=== PATIENT | female | born 2000 | race Caucasian/White ===

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

== ENCOUNTER → 2022-07-05 17:07 | Outpatient (BNVA) | payer BC, MEDICAID, SELFPAY | PROVIDERS: Visit Provider Emergency Medicine | DX: R60.9 Edema, unspecified (principal) | CPT/HCPCS: 73562 ==

== ENCOUNTER 2022-10-12 11:07 | Emergency (ER) | payer BC, MEDICAID, SELFPAY ==
[2022-10-12 11:24] VITALS: BP 128/83; PULSE 89; RESP 16; TEMP 36.8; O2SAT 100; BMI 17.3
[2022-10-12 11:28] VITALS: BP 132/79; PULSE 68; RESP 16; O2SAT 97
--- NOTE | 2022-10-12 12:19 | CTR_ITS ---
PROCEDURE INFORMATION: Exam: CT Head Without Contrast Exam date and time: 10/12/2022 12:34 PM Age: 22 years old Clinical indication: Other: Weakness, vision changes, headache TECHNIQUE: Imaging protocol: Computed tomography of the head without contrast. Radiation optimization: All CT scans at this facility use at least one of these dose optimization techniques: automated exposure control; mA and/or kV adjustment per patient size (includes targeted exams where dose is matched to clinical indication); or iterative reconstruction. REPORTING DATA: Count of CT and Cardiac NM exams in prior 12 months: This patient has received 0 known CTs and 0 known cardiac nuclear medicine studies in the 12 months prior to the current study. COMPARISON: MR head wo con* [id number] 12/27/2020 8:05 AM RADIATION DOSE METRICS: Total DLP (mGy-cm): 954.49 FINDINGS: Brain: Normal. No hemorrhage. Unremarkable white matter. No mass effect. Cerebral ventricles: No ventriculomegaly. Paranasal sinuses: Mucosal thickening noted in the frontal sinuses. Mastoid air cells: Visualized mastoid air cells are well aerated. Bones/joints: Unremarkable. No acute fracture. Soft tissues: Unremarkable. CT/CT head wo con* [id number] IMPRESSION: No acute intracranial abnormality.
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
[2022-10-12 12:58] VITALS: BP 126/83; PULSE 79; RESP 16; O2SAT 95
[2022-10-12 13:00] VITALS: BP 126/83; PULSE 79; RESP 16; O2SAT 95
[2022-10-12 13:01] LABS: Basophils % 0.4 %; Eosinophils # 0.1 10^3/uL (0.0-0.8); Eosinophils % 1.1 %; Hematocrit 36.1 % (37.0-47.0); Hemoglobin 11.8 g/dL (11.5-15.3); Lymphocytes # 1.9 10^3/uL (1.5-6.5); Lymphocytes % 27.1 %; Mean Corpuscular HGB Conc 32.7 g/dL (30.0-36.0); Mean Corpuscular Hemoglobin 29.6 pg (28.0-34.0); Mean Corpuscular Volume 90.5 fl (81-99); Mean Platelet Volume 9.5 fL (7.4-10.4); Monocytes # 0.4 10^3/uL (0.2-0.9); Neutrophils # 4.66 10^3/uL (1.8-8.0); Neutrophils % 65.1 %; Nucleated Red Blood Cells % 0 %; Platelet Count 326 10^3/cmm (130-400); Red Blood Count 3.99 10^6/uL (4.1-5.3); Red Cell Distribution Width 11.7 % (12.1-15.1); White Blood Count 7.2 10^3/uL (4.5-13.0)
--- NOTE | 2022-10-12 13:05 | PC.NURSE ---
PHYSICIAN NOTIFIED OF NIH SCORE - 2 AND PT RIGHT WEED CUTTER < LEFT WEED CUTTER. NO NEW ORDERS AT THIS TIME.
[2022-10-12 13:18] LABS: Add Urine Microscopic? NO; Charge for UA Resulting for Rev
[2022-10-12 13:21] LABS: Bilirubin Urine Neg (Negative); Blood Urine Neg (Negative); Glucose Urine UA Norm (Normal); Ketones Urine Negative (Negative); Leukocyte Esterase Urine Negative (Negative); Nitrate Urine Negative (Negative); Protein Urine Neg (Negative); Sulfosalicylic Acid Urine Negative (Negative); Urine Appearance Clear (CLEAR); Urine Color Yellow (Yellow); Urobilinogen Urine Norm (Negative); pH Urine 8 (5-7)
[2022-10-12 13:24] LABS: Alanine Aminotransferase 6 U/L (0-33); Albumin Level 4.4 g/dL (3.5-5.2); Alkaline Phosphatase 64 U/L (35-105); Anion Gap 15.5 (5-19); Aspartate Amino Transferase 14 U/L (0-32); Blood Urea Nitrogen 8 mg/dL (6-20); Calcium 8.8 mg/dL (8.5-10.5); Carbon Dioxide 21 mmol/L (22-29); Chloride 106 mmol/L (98-107); Globulin 2.8 g/dL (1.3-4.6); Glomerular Filtration Rate 127.5 mL/min (90-130); Glucose 78 mg/dL (65-115); Osmolality Calculated 285 mOsm/kg (285-295); Potassium 3.5 mmol/L (3.5-5.1); Sodium 139 mmol/L (136-145); Total Bilirubin 0.6 mg/dL (0.15-1.2); Total Protein 7.2 g/dL (6.6-8.7)
[2022-10-12 13:29] LABS: Amphetamines Screen Urine Negative (Negative); Barbiturates Screen Urine Negative (Negative); Benzodiazepines Screen Urine Negative (Negative); Cocaine Screen Urine Negative (Negative); Opiate Screen Urine Negative (Negative); PCP Screen Urine Negative (Negative); THC Screen Urine Negative (Negative)
[2022-10-12 14:00] VITALS: BP 99/83; PULSE 88; RESP 16; O2SAT 100
[2022-10-12 14:47] VITALS: BP 99/83; PULSE 88; RESP 16; O2SAT 100
== END 2022-10-12 14:05 | disposition home or self-care (01) ==
PROVIDERS: Emergency Provider Emergency Medicine; PCP Nurse Practitioner Family
DX: R51.9 Headache, unspecified (principal); R42 Dizziness and giddiness; R29.818 Other symptoms and signs involving the nervous system
CPT/HCPCS: 70450; 80053; 80306; 81003; 85025; 86140; 99284

== ENCOUNTER → 2023-05-06 12:03 | Outpatient (BNVA) | payer OTHER, MEDICAID, SELFPAY | PROVIDERS: PCP Nurse Practitioner Family; Visit Provider Registered Nurse Neonatal Intensive Care | DX: R05.9 Cough, unspecified (principal) | CPT/HCPCS: 87400; 87426 ==

== ENCOUNTER → 2023-05-07 09:35 | Outpatient (BNVA) | payer OTHER, SELFPAY | PROVIDERS: PCP Nurse Practitioner Family; Visit Provider Psychiatry & Neurology Neurology | DX: R56.9 Unspecified convulsions (principal); R51.9 Headache, unspecified | CPT/HCPCS: 36415; 82306; 82607; 82746; 83735; 83921 ==

== ENCOUNTER 2023-05-08 20:45 | Emergency (ER) | payer OTHER, MEDICAID, SELFPAY ==
[2023-05-08 20:51] VITALS: BP 127/105; PULSE 112; RESP 16; TEMP 37.9; O2SAT 97
--- NOTE | 2023-05-08 20:58 | XRR_ITS ---
PROCEDURE INFORMATION: Exam: XR Chest Exam date and time: 05/08/2023 9:15 PM Age: 23 years old Clinical indication: Cough; Patient HX: N/v/d TECHNIQUE: Imaging protocol: Radiologic exam of the chest. Views: 1 view. COMPARISON: No relevant prior studies available. FINDINGS: Lungs: Unremarkable. No consolidation. Pleural spaces: Unremarkable. No pleural effusion. No pneumothorax. Heart/Mediastinum: Unremarkable. No cardiomegaly. Bones/joints: Unremarkable. XR/XR chest 1V portable [id number] IMPRESSION: No acute findings.
--- NOTE | 2023-05-08 20:59 | W.ED.NAVMDI ---
HPI - Nausea/Vomiting/Diarrhea General: Chief complaint: Nausea/Vomiting/Diarrhea Stated complaint: n/v Time Seen by Provider: 05/08/23 20:52 History of Present Illness: 23-year-old female comes in today for complaints of nausea and vomiting for the last 4 days. Patient is also had cough and nasal congestion with some diarrhea. 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 Patient did have positive contact with RSV. Patient appears unwell but not toxic. Patient has a congested nose. Patient reports no chronic medical problems. Associated nausea: Yes Associated symtoms: Reports nausea Review of Systems General: Reports: 10 or more systems reviewed and unremarkable except in HPI and below GI: Reports: nausea and vomiting PFSH ED PFSH: Medical History Psychiatric care Hypothyroidism No pertinent past medical history neghx: htn,dm,thyroid,dvt/pe PCP: [facility] Migraine without aura Surgical History No pertinent past surgical history Family History Father Hypertension Heart disease Grandfather Heart disease Paternal grandfather Family/Other No problems noted. Grandmother Diabetes Maternal grandmother Paternal grandmother Denies family history of Colon cancer Ovarian cancer Hyperlipidemia Breast cancer Family history of thyroid problem Uterine cancer Stroke Social History (Updated 05/07/23 @ 08:33 by Chrissy Luis) Smoking and tobacco/nicotine status: current every day tobacco/nicotine user e-cigarettes E-Cigarette Details: vaporizer device and with nicotine Alcohol intake: current Alcohol intake frequency: few times a month Substance/Drug Use: never Female Reproductive History: Date of last menstrual period: 01/14/20 Physical Exam Const: COMMON NORMALS: alert HENMT: COMMON NORMALS: normocephalic HEAD & SCALP: normocephalic NOSE: Nasal discharge present MOUTH: Normal oral and palatal mucosa present Neck/C-Spine: COMMON NORMALS: full ROM Resp: COMMON NORMALS: normal respiratory effort and clear to auscultation bilaterally AUSCULTATION: clear to auscultation bilaterally Cardio: COMMON NORMALS: regular rate and regular rhythm RATE: regular rate RHYTHM: regular rhythm GI: COMMON NORMALS: Soft to palpation and non-tender PALPATION: Yes Soft to palpation : COMMON NORMALS: Yes no CVA tenderness BLADDER/KIDNEY EXAM: Yes no CVA tenderness Back/Pelvis: COMMON NORMALS: no CVA tenderness Extremity: COMMON NORMALS: normal to inspection Neuro: SENSORIUM/ORIENTATION: Yes alert Skin: COMMON NORMALS: turgor normal GENERAL SKIN EXAM: turgor normal Course Vital Signs: Vital signs: Vital Signs Temperature 100.3 F H 05/08/23 20:51 Pulse Rate 102 H 05/08/23 22:19 Respiratory Rate 16 05/08/23 22:19 Blood Pressure 116/74 05/08/23 22:19 Pulse Oximetry 98 05/08/23 22:19 Oxygen Delivery Me thod Room Air 05/08/23 21:53 MDM - Nausea/Vomiting/Diarrhea Medical Decision Making Patient comes in today for complaints of nausea and vomiting x 4 days. Patient has nasal drainage and congestion. On exam lungs are clear to auscultation. Abdomen soft nontender. Vital signs are normal except for some elevation temperature of 100.3 and a pulse rate of 112. CBC noted some mild leukocytosis at 14,000, CMP was unremarkable, urinalysis noted some mild leukocyte esterases and white blood cells. It was also contaminated with skin cells. Believe patient probably has some dehydration secondary to a viral syndrome. Patient was given 1 L of IV fluids and some Zofran and Toradol and was able to tolerate oral fluids and discharged home with Zofran. Patient and mother both reported understanding of care plan and need for follow-up or return to the ER. Lab Data 05/08/23 20:56 05/08/23 20:56 Radiology Impressions Chest X-Ray 05/08/23 20:58 IMPRESSION: No acute findings. Laboratory Results WBC 14.91 10^3/uL (3.29-11.43) H 05/08/23 20:56 RBC 3.89 10^6/uL (3.85-5.65) 05/08/23 20:56 Hgb 11.70 g/dL (11.27-16.99) 05/08/23 20:56 Hct 35.2 % (36-47) L 05/08/23 20:56 MCV 90.5 fl (85-98) 05/08/23 20:56 MCH 30.1 pg (27-33) 05/08/23 20:56 MCHC 33.2 g/dL (30-55) 05/08/23 20:56 RDW 11.5 % (12.1-15.1) L 05/08/23 20:56 Plt Count 371 10^3/cmm (157-399) 05/08/23 20:56 MPV 9.5 fL (7.4-10.4) 05/08/23 20:56 Neut % (Auto) 82.9 % 05/08/23 20:56 Lymph % (Auto) 9.0 % 05/08/23 20:56 [place] % (Auto) 7.3 % 05/08/23 20:56 Eos % (Auto) 0.2 % 05/08/23 20:56 Baso % (Auto) 0.2 % 05/08/23 20:56 Neut # (Auto) 12.36 10^3/uL (1.8-7.7) H 05/08/23 20:56 Lymph # (Auto) 1.3 10^3/uL (0.8-4.8) 05/08/23 20:56 [place] # (Auto) 1.1 10^3/uL (0.2-0.9) H 05/08/23 20:56 Eos # (Auto) 0.0 10^3/uL (0.0-0.8) 05/08/23 20:56 Baso # (Auto) 0.0 10^3/uL (0.0-0.1) 05/08/23 20:56 Nucleated RBC % (auto) 0 % 05/08/23 20:56 Nucleated RBCs # 0.0 /100WBC 05/08/23 20:56 Sodium 137 mmol/L (136-145) 05/08/23 20:56 Potassium 4.1 mmol/L (3.5-5.1) 05/08/23 20:56 Chloride 99 mmol/L (98-107) 05/08/23 20:56 Carbon Dioxide 23 mmol/L (22-29) 05/08/23 20:56 Anion Gap 19.1 (5-19) H 05/08/23 20:56 BUN 8 mg/dL (6-20) 05/08/23 20:56 Creatinine 0.6 mg/dL (0.5-0.9) 05/08/23 20:56 GFR Calculation 126.2 mL/min (90-130) 05/08/23 20:56 Glucose 90 mg/dL (65-115) 05/08/23 20:56 Calculated Osmolality 282 mOsm/kg (285-295) L 05/08/23 20:56 Calcium 8.7 mg/dL (8.5-10.5) 05/08/23 20:56 Total Bilirubin 0.7 mg/dL (0.15-1.2) 05/08/23 20:56 AST 17 U/L (0-32) 05/08/23 20:56 ALT 6 U/L (0-33) 05/08/23 20:56 Alkaline Phosphatase 88 U/L (35-105) 05/08/23 20:56 Total Protein 8.2 g/dL (6.6-8.7) 05/08/23 20:56 Albumin 3.9 g/dL (3.5-5.2) 05/08/23 20:56 Globulin 4.3 g/dL (1.3-4.6) 05/08/23 20:56 HCG, Qual Negative (Negative) 05/08/23 20:56 Urine Color Yellow (Yellow) 05/08/23 20:58 Urine Appearance Sl hazy (CLEAR) A 05/08/23 20:58 Urine pH 5 (5-7) 05/08/23 20:58 Ur Specific [place] 1.020 (1.005-1.030) 05/08/23 20:58 Urine Protein Trace (Negative) 05/08/23 20:58 Urine Glucose (UA) Norm (Normal) 05/08/23 20:58 Urine Ketones 2+ (Negative) H 05/08/23 20:58 Urine Blood 3+ (Negative) H 05/08/23 20:58 Urine Nitrate Negative (Negative) 05/08/23 20:58 Urine Bilirubin Neg (Negative) 05/08/23 20:58 Urine Urobilinogen 4+ mg/dL (Negative) H 05/08/23 20:58 Ur Leukocyte Esterase 1+ (Negative) H 05/08/23 20:58 Urine RBC 5-10 /hpf (0-2) H 05/08/23 20:58 Urine WBC 10-15 /hpf (0-5) H 05/08/23 20:58 Ur Squamous Epith Cells 0-4 /hpf (0-5) H 05/08/23 20:58 Amorphous Sediment Trace /hpf 05/08/23 20:58 Urine Bacteria 1+ /hpf (NONE) H 05/08/23 20:58 Urine Mucus Trace /hpf 05/08/23 20:58 Influenza Type A Ag negative (Negative) 05/08/23 20:59 Influenza Type B Ag negative (Negative) 05/08/23 20:59 SARS-CoV-2 Ag (Rapid) negative (Negative) 05/08/23 20:59 All radiology interpretation(s) finalized by discharge Discharge Plan Discharge Patient Disposition: Home Clinical Impression: Viral syndrome, Dehydration Condition: Stable Prescriptions: New ondansetron 4 mg tablet,disintegrating 4 mg PO Q8H PRN (Reason: nausea and vomiting) Qty: 10 0RF No Action cholecalciferol (vitamin D3) 1,250 mcg (50,000 unit) capsule 50,000 unit PO DAILY Qty: 30 2RF Rx Instructions: Take 1 tablet twice a week for 3 weeks then 1 tablet every week thereafter. albuterol sulfate 90 mcg/actuation HFA aerosol inhaler 2 inh inhalation QID Discharge Orders: Discharge ED (Routine); Ordered 05/08/23 Ordered By: Westley Reinoso Referrals: Jackie Hardin FNP [Primary Care Provider] - Discharge Diet: Usual diet Discharge Activity: Increase activity as tolerated Patient Instructions: Acute Nausea and Vomiting (ED) Activity Restrictions/Additional Instructions: Home and rest. Drink frequent sips of fluid. Increase diet slowly over the next 24 to 48 hours. Start with clear liquids and then increase to full liquids and then to bland diet. Follow-up with primary care as needed. Return to ED for increasing nausea and vomiting, blood in vomit or stool, or new concerns. Stand Alone Forms: Work/School Release Coding Level of Care Code ED Scientific Laboratory Supervisor for Ochoa Ward
[2023-05-08] MEDS: ondansetron 2 mg/ML SDV 2 mL 4 MG IVP (21:02)
[2023-05-08] MEDS: sodium chloride 0.9% 1,000 ML 999 ML IV (21:03)
[2023-05-08 21:05] LABS: Basophils % 0.2 %; Eosinophils % 0.2 %; Hematocrit 35.2 % (36-47); Lymphocytes # 1.3 10^3/uL (0.8-4.8); Mean Corpuscular HGB Conc 33.2 g/dL (30-55); Mean Corpuscular Hemoglobin 30.1 pg (27-33); Mean Corpuscular Volume 90.5 fl (85-98); Mean Platelet Volume 9.5 fL (7.4-10.4); Monocytes # 1.1 10^3/uL (0.2-0.9); Monocytes % 7.3 %; Neutrophils # 12.36 10^3/uL (1.8-7.7); Neutrophils % 82.9 %; Nucleated Red Blood Cells % 0 %; Platelet Count 371 10^3/cmm (157-399); Red Blood Count 3.89 10^6/uL (3.85-5.65); Red Cell Distribution Width 11.5 % (12.1-15.1); White Blood Count 14.91 10^3/uL (3.29-11.43)
[2023-05-08 21:14] LABS: HCG, Serum Qual Negative (Negative)
[2023-05-08 21:23] LABS: Add Urine Microscopic? YES; Bilirubin Urine Neg (Negative); Blood Urine 3+ (Negative); Glucose Urine UA Norm (Normal); Ketones Urine 2+ (Negative); Leukocyte Esterase Urine 1+ (Negative); Nitrate Urine Negative (Negative); Protein Urine Trace (Negative); Urine Appearance SL Hazy (CLEAR); Urine Color Yellow (Yellow); Urobilinogen Urine 4+ mg/dL (Negative); pH Urine 5 (5-7)
[2023-05-08 21:24] LABS: Albumin Level 3.9 g/dL (3.5-5.2); Alkaline Phosphatase 88 U/L (35-105); Blood Urea Nitrogen 8 mg/dL (6-20); Calcium 8.7 mg/dL (8.5-10.5); Carbon Dioxide 23 mmol/L (22-29); Chloride 99 mmol/L (98-107); Globulin 4.3 g/dL (1.3-4.6); Glomerular Filtration Rate 126.2 mL/min (90-130); Glucose 90 mg/dL (65-115); Osmolality Calculated 282 mOsm/kg (285-295); Sodium 137 mmol/L (136-145); Total Bilirubin 0.7 mg/dL (0.15-1.2); Total Protein 8.2 g/dL (6.6-8.7)
[2023-05-08 21:24] LABS: Amorphous Sediment Urine TRACE /hpf; Bacteria Urine 1+ /hpf; Mucus Urine TRACE /hpf; Squamous Epithelial Cell Urine 0-4 /hpf (0-5)
[2023-05-08 21:25] LABS: Add Urine Culture? Yes
[2023-05-08 21:27] LABS: Anion Gap 19.1 (5-19); Potassium 4.1 mmol/L (3.5-5.1)
[2023-05-08 21:28] LABS: Alanine Aminotransferase 6 U/L (0-33); Aspartate Amino Transferase 17 U/L (0-32)
[2023-05-08 21:29] LABS: Influenza A by IFA negative (Negative); Influenza B by IFA negative (Negative); SARS Covid-2 Antigen negative (Negative)
[2023-05-08] MEDS: ketorolac 30 mg/mL INJ 15 MG IVP (21:30)
[2023-05-08 21:53] VITALS: BP 121/75; RESP 16; O2SAT 99
[2023-05-08 22:19] VITALS: BP 116/74; PULSE 102; RESP 16; O2SAT 98
== END 2023-05-08 22:27 | disposition home or self-care (01) ==
PROVIDERS: Emergency Provider Nurse Practitioner Family; PCP Nurse Practitioner Family
DX: B34.9 Viral infection, unspecified (principal); E86.0 Dehydration; Z11.52 Encounter for screening for COVID-19; F17.290 Nicotine dependence, other tobacco product, uncomplicated
CPT/HCPCS: 71045; 80053; 81001; 84703; 85025; 87086; 87426; 87804; 96361; 96374; 96375; 99284; J1885; J2405; J7030

== ENCOUNTER 2023-05-31 09:19 | Outpatient (CLI) | payer OTHER, SELFPAY ==
--- NOTE | 2023-05-31 10:15 | MR_ITS ---
WS: [id number] MRI HEAD WITH CONTRAST TECHNIQUE: Sagittal T1, T2 axial, T2 axial FLAIR, axial susceptibility weighted imaging, axial diffus ion weighted images, and coronal T2 images were obtained. Pre and post-T1 axial and post T1 coronal i mages. ADC and FSPGR images. CLINICAL INFORMATION: R56.9 - Unspecified convulsions COMPARISON: MRI 2020 FINDINGS: No evidence of restricted diffusion to suggest acute ischemia. Ventricular system and basal cisterns are patent. Normal posterior fossa. Normal vascular flow voids at the skull base. No extra-axial flui d collections. No evidence of mass or mass effect. Moderate polypoid mucosal thickening in the parana jayme sinuses. Mucosal thickening in the mastoid tips. Prominent adenoid tissue in the posterior nasoph arynx normal for patient this age. No hemosiderin on susceptibly weighted images. Normal optic chiasm and pituitary infundibulum. Tempor al lobes and hippocampal formations are normal in appearance. No signal abnormalities in the mesial t emporal lobes. No abnormal gadolinium enhancement. Normal dural venous sinuses. No other suspicious findings. IMPRESSION: 1. No evidence of restricted diffusion to suggest acute ischemia. 2. No suspicious intracranial signal abnormalities. 3. Temporal lobes and hippocampal formations are normal in appearance. No signal abnormalities in th e mesial temporal lobes. 4. No abnormal gadolinium enhancement. 5. Moderate polyploid mucosal thickening in the paranasal sinuses. Fluid in the RIGHT maxillary sinu s compatible with sinusitis.
[2023-05-31] MEDS: gadobenate dimeglumine 20 mL vial IV (10:49)
== END 2023-05-31 09:20 | disposition home or self-care (01) ==
PROVIDERS: PCP Nurse Practitioner Family; Visit Provider Psychiatry & Neurology Neurology
DX: R56.9 Unspecified convulsions (principal); R51.9 Headache, unspecified
CPT/HCPCS: 70553; A9577

== ENCOUNTER 2024-01-19 01:43 | Emergency (ER) | payer MEDICAID, SELFPAY ==
[2024-01-19 01:44] VITALS: BP 116/67; RESP 125; TEMP 36.3; O2SAT 100; BMI 20.9
--- NOTE | 2024-01-19 02:20 | PC.NURSE ---
Seizure pads placed on bed. Pt changed into gown.
[2024-01-19] MEDS: sodium chloride 0.9% 1,000 ML 999 ML IV (02:21)
[2024-01-19 02:28] LABS: Basophils # 0.1 10^3/uL (0.0-0.1); Basophils % 0.6 %; Eosinophils # 0.1 10^3/uL (0.0-0.8); Eosinophils % 0.8 %; Lymphocytes # 4.2 10^3/uL (0.8-4.8); Lymphocytes % 42.3 %; Mean Corpuscular HGB Conc 33.1 g/dL (30-55); Mean Corpuscular Hemoglobin 30.3 pg (27-33); Mean Corpuscular Volume 91.5 fl (85-98); Mean Platelet Volume 10.5 fL (7.4-10.4); Monocytes # 0.8 10^3/uL (0.2-0.9); Monocytes % 8.4 %; Neutrophils # 4.76 10^3/uL (1.8-7.7); Neutrophils % 47.7 %; Nucleated Red Blood Cells % 0 %; Platelet Count 368 10^3/cmm (157-399); Red Blood Count 4.59 10^6/uL (3.85-5.65); Red Cell Distribution Width 11.5 % (12.1-15.1); White Blood Count 9.99 10^3/uL (3.29-11.43)
--- NOTE | 2024-01-19 02:43 | PC.NURSE ---
Dad, , and friend at bedside. Pt crying out. Pulled out IV. Dressing applied.
[2024-01-19 02:47] LABS: Alanine Aminotransferase 10 U/L (0-33); Albumin Level 4.7 g/dL (3.5-5.2); Alcohol Level 256 mg/dL (0-10); Alkaline Phosphatase 89 U/L (35-105); Aspartate Amino Transferase 19 U/L (0-32); Blood Urea Nitrogen 6 mg/dL (6-20); Calcium 8.9 mg/dL (8.5-10.5); Carbon Dioxide 20 mmol/L (22-29); Chloride 109 mmol/L (98-107); Glomerular Filtration Rate 105.6 mL/min (90-130); Glucose 75 mg/dL (65-115); Osmolality Calculated 292 mOsm/kg (285-295); Sodium 143 mmol/L (136-145); Total Bilirubin 0.3 mg/dL (0.15-1.2); Total Protein 7.7 g/dL (6.6-8.7)
[2024-01-19 02:50] LABS: Acetaminophen < 5.0 ug/mL (10-30); Salicylate < 0.3 mg/dL (3-10)
[2024-01-19 02:55] VITALS: BP 113/76; PULSE 107; RESP 20; O2SAT 97
--- NOTE | 2024-01-19 03:08 | PC.NURSE ---
Orders received for IM meds. Clarified order dosages with MD secondary to pt size and ETOH. MD ordered to hold Ativan at this time. Will give further ordered meds and monitor pt.
[2024-01-19] MEDS: haloperidol inj 5 mg/mL INJ 1 mL IM (03:21)
[2024-01-19] MEDS: diphenhydrAMINE 50 mg/mL SDV 1mL IM (03:23)
[2024-01-19 04:01] VITALS: BP 91/53; PULSE 93; RESP 15; O2SAT 94
--- NOTE | 2024-01-19 04:01 | PC.NURSE ---
PT resting quietly at this time. vss
--- NOTE | 2024-01-19 04:39 | PC.NURSE ---
Pt resting quietly. Airway patent. Resp even/unlabored.
[2024-01-19 04:41] VITALS: BP 92/47; PULSE 90; O2SAT 94
--- NOTE | 2024-01-19 18:34 | W.ED.SEIZURE ---
HPI - Seizure General: Chief Complaint: Seizure Stated Complaint: SEIZURE Time Seen by Provider: 01/19/24 02:23 History of Present Illness: HPI Narrative: This patient is a 23-year-old white female who presents to the emergency department with alcohol intoxication and abnormal behavior. Patient is thrashing around. She is here with her friend who was out drinking with her tonight. Her father did arrive later during the ER stay. He states he is never seen her like this before but he is never seen her intoxicated either. Seizure History: Yes Place: [facility] [place] Related Data Home Medications Medication Instructions Recorded Confirmed albuterol sulfate 90 mcg/actuation 2 inh inhalation QID 10/12/22 07/03/23 aerosol inhaler Previous Rx's Medication Instructions Recorded cholecalciferol (vitamin D3) 1,250 50,000 unit PO DAILY #30 caps 05/07/23 mcg (50,000 unit) capsule ondansetron 4 mg disintegrating 4 mg PO Q8H PRN nausea and 05/08/23 tablet vomiting #10 tabs Allergies Allergy/AdvReac Type Severity Reaction Status Date / Time nitrofurantoin Allergy Intermediate ALGY-Hives Verified 07/03/23 10:15 apple Allergy ALGY-Anaphy Verified 01/02/24 15:05 laxis etonogestrel [From Nexplanon] AdvReac Severe Seizures Verified 07/03/23 10:15 Review of Systems General: Reports: 10 or more systems reviewed and unremarkable except in HPI and below Narrative: Intoxicated, abnormal behavior. [facility] ED PFSH: Medical History (Updated 01/19/24 @ 03:39 by Jose Sheikh MD) Hypothyroidism No pertinent past medical history neghx: htn,dm,thyroid,dvt/pe PCP: [facility] Migraine without aura Surgical History No pertinent past surgical history Family History Father Hypertension Heart disease Grandfather Heart disease Paternal grandfather Family/Other No problems noted. Grandmother Diabetes Maternal grandmother Paternal grandmother Denies family history of Colon cancer Ovarian cancer Hyperlipidemia Breast cancer Family history of thyroid problem Uterine cancer Stroke Social History (Updated 05/07/23 @ 08:33 by Chrissy Luis) Smoking and tobacco/nicotine status: current every day tobacco/nicotine user e-cigarettes E-Cigarette Details: vaporizer device and with nicotine Alcohol intake: current Alcohol intake frequency: few times a month Substance/Drug Use: never Physical Exam Const: OTHER: Patient will not answer questions. When I ask her questions she seems to thrash around in the bed. No seizure activity. HENMT: COMMON NORMALS: normocephalic, atraumatic, Normal nasal mucous membranes and turbinates present, moist oral mucous membranes and oropharynx normal HEAD & SCALP: normal to inspection, normocephalic and atraumatic FACE & SINUS: normal facial exam NOSE: Normal nasal mucous membranes and turbinates present Eye: COMMON NORMALS: Equal, round and reactive pupils present, EOMs intact bilaterally and conjunctivae normal GENERAL EYE: appearance normal, both eyes and all related structures CONJUNCTIVA: Yes conjunctivae normal PUPIL: Yes Equal, round and reactive pupils present Neck/C-Spine: COMMON NORMALS: supple and no JVD Chest: COMMONS NORMALS: normal inspection of the chest Resp: COMMON NORMALS: normal respiratory effort and clear to auscultation bilaterally AUSCULTATION: clear to auscultation bilaterally Cardio: COMMON NORMALS: no JVD, regular rate, regular rhythm, No gallops present (Cardio), No murmurs present (Cardio) and No rub (Cardio) RATE: regular rate RHYTHM: regular rhythm GI: COMMON NORMALS: Normal to inspection, nondistended, normoactive bowel sounds present, Soft to palpation and non-tender AUSCULTATION: Yes normoactive bowel sounds PALPATION: Yes Soft to palpation : COMMON NORMALS: Yes no CVA tenderness BLADDER/KIDNEY EXAM: Yes no CVA tenderness Back/Pelvis: COMMON NORMALS: no CVA tenderness and thoracic and lumbar spine normal to inspection Extremity: COMMON NORMALS: normal to inspection Neuro: COMMON NORMALS: CN's II-XII intact bilaterally Psych: OTHER: Intoxicated, uncooperative. Skin: COMMON NORMALS: no rashes or lesions noted, turgor normal and no jaundice GENERAL SKIN EXAM: no rashes or lesions noted and turgor normal Course Vital Signs: Vital signs: Vital Signs Temperature 97.4 F L 01/19/24 01:44 Pulse Rate 90 01/19/24 04:41 Respiratory Rate 15 01/19/24 04:01 Blood Pressure 92/47 01/19/24 04:41 Pulse Oximetry 94 01/19/24 04:41 Oxygen Delivery Me thod Room Air 01/19/24 04:01 MDM - Seizure MDM Narrative Medical decision making narrative: CBC and CMP were normal. Blood alcohol level was 256. The patient was acting out quite a bit in the emergency department yelling and thrashing around. We did give her 5 mg of Haldol IM and 50 mg of Benadryl IM. This calmed her down nicely. She was observed for some time. Vital signs are stable. She was discharged with her father in stable condition. Follow-up with primary care physician as needed. Lab Data 01/19/24 01:55 01/19/24 01:55 Labs: Laboratory Results WBC 9.99 10^3/uL (3.29-11.43) 01/19/24 01:55 RBC 4.59 10^6/uL (3.85-5.65) 01/19/24 01:55 Hgb 13.90 g/dL (11.27-16.99) 01/19/24 01:55 Hct 42.0 % (36-47) 01/19/24 01:55 MCV 91.5 fl (85-98) 01/19/24 01:55 MCH 30.3 pg (27-33) 01/19/24 01:55 MCHC 33.1 g/dL (30-55) 01/19/24 01:55 RDW 11.5 % (12.1-15.1) L 01/19/24 01:55 Plt Count 368 10^3/cmm (157-399) 01/19/24 01:55 MPV 10.5 fL (7.4-10.4) H 01/19/24 01:55 Neut % (Auto) 47.7 % 01/19/24 01:55 Lymph % (Auto) 42.3 % 01/19/24 01:55 [place] % (Auto) 8.4 % 01/19/24 01:55 Eos % (Auto) 0.8 % 01/19/24 01:55 Baso % (Auto) 0.6 % 01/19/24 01:55 Neut # (Auto) 4.76 10^3/uL (1.8-7.7) 01/19/24 01:55 Lymph # (Auto) 4.2 10^3/uL (0.8-4.8) 01/19/24 01:55 [place] # (Auto) 0.8 10^3/uL (0.2-0.9) 01/19/24 01:55 Eos # (Auto) 0.1 10^3/uL (0.0-0.8) 01/19/24 01:55 Baso # (Auto) 0.1 10^3/uL (0.0-0.1) 01/19/24 01:55 Nucleated RBC % (auto) 0 % 01/19/24 01:55 Nucleated RBCs # 0.0 /100WBC 01/19/24 01:55 Sodium 143 mmol/L (136-145) 01/19/24 01:55 Potassium 3.0 mmol/L (3.5-5.1) L 01/19/24 01:55 Chloride 109 mmol/L (98-107) H 01/19/24 01:55 Carbon Dioxide 20 mmol/L (22-29) L 01/19/24 01:55 Anion Gap 17.0 (5-19) 01/19/24 01:55 BUN 6 mg/dL (6-20) 01/19/24 01:55 Creatinine 0.7 mg/dL (0.5-0.9) 01/19/24 01:55 GFR Calculation 105.6 mL/min (90-130) 01/19/24 01:55 Glucose 75 mg/dL (65-115) 01/19/24 01:55 Calculated Osmolality 292 mOsm/kg (285-295) 01/19/24 01:55 Calcium 8.9 mg/dL (8.5-10.5) 01/19/24 01:55 Total Bilirubin 0.3 mg/dL (0.15-1.2) 01/19/24 01:55 AST 19 U/L (0-32) 01/19/24 01:55 ALT 10 U/L (0-33) 01/19/24 01:55 Alkaline Phosphatase 89 U/L (35-105) 01/19/24 01:55 Total Protein 7.7 g/dL (6.6-8.7) 01/19/24 01:55 Albumin 4.7 g/dL (3.5-5.2) 01/19/24 01:55 Globulin 3.0 g/dL (1.3-4.6) 01/19/24 01:55 Salicylates < 0.3 mg/dL (3-10) L 01/19/24 01:55 Acetaminophen < 5.0 ug/mL (10-30) L 01/19/24 01:55 Ethyl Alcohol 256 mg/dL (0-10) H 01/19/24 01:55 No radiology studies performed this visit Discharge Plan Discharge Patient Disposition: Home Clinical Impression: Alcohol intoxication Qualifiers: Complication of substance-induced condition: uncomplicated Qualified Code(s): F10.920 - Alcohol use, unspecified with intoxication, uncomplicated Condition: Stable Prescriptions: No Action cholecalciferol (vitamin D3) 1,250 mcg (50,000 unit) capsule 50,000 unit PO DAILY Qty: 30 2RF Rx Instructions: Take 1 tablet twice a week for 3 weeks then 1 tablet every week thereafter. albuterol sulfate 90 mcg/actuation HFA aerosol inhaler 2 inh inhalation QID ondansetron 4 mg tablet,disintegrating 4 mg PO Q8H PRN (Reason: nausea and vomiting) Qty: 10 0RF Discharge Orders: Discharge ED (Routine); Ordered 01/19/24 Ordered By: Jose Sheikh Referrals: Jackie Hardin, ELECT[employer]MENT TRADES WORKER [Primary Care Provider] - Patient Instructions: Abuse of Alcohol (DC) Coding Level of Care Code ED Professor Sculpture for Ochoa Ward
== END 2024-01-19 04:51 | disposition home or self-care (01) ==
PROVIDERS: Emergency Provider Emergency Medicine; PCP Nurse Practitioner Family
DX: F10.920 Alcohol use, unspecified with intoxication, uncomplicated (principal); Y90.8 Blood alcohol level of 240 mg/100 ml or more; F17.290 Nicotine dependence, other tobacco product, uncomplicated
CPT/HCPCS: 80053; 80307; 85025; 96360; 96372; 99284; J1200; J1630; J7030